=== PATIENT | male | born 1995 | race African-American/Black ===

== ENCOUNTER 2024-12-14 18:57 | Emergency (ER) | payer MEDICAID, OTHER ==
[~2024-12-14] VITALS: Ht 177.8 cm; Wt 75.8 kg
[2024-12-14 19:58] VITALS: BP 124/56; PULSE 62; RESP 16; TEMP 98.1; O2SAT 99
[2024-12-14] MEDS: KETOROLAC TROMETH 60MG/2ML VIAL IM ONE (20:32)
[2024-12-14] MEDS: IBUPROFEN 800 MG TAB PO ONE (20:57)
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
[2024-12-14] MEDS ORDERED: IBUP-1455 PO (21:13)
[2024-12-14] MEDS ORDERED: TIZA-142 PO (21:13)
== END 2024-12-14 21:27 | disposition home or self-care (01) ==
LOC: ER 19:02
DX: S13.4XXA Sprain of ligaments of cervical spine, initial encounter (principal); G44.311 Acute post-traumatic headache, intractable; V89.2XXA Person injured in unspecified motor-vehicle accident, traffic, initial encounter; Y93.I9 Activity, other involving external motion; Y92.488 Other paved roadways as the place of occurrence of the external cause; Y99.8 Other external cause status
CPT/HCPCS: 72040; 99283; J1885